=== PATIENT | male | born 1995 | race Caucasian/White ===

== ENCOUNTER 2016-08-03 16:28 | Emergency (ER) | payer BC, OTHER ==
[2016-08-03] MEDS: KETOROLAC TROMETHAMINE 60 MG/2 ML VIAL IM ONE (17:00)
--- NOTE | 2016-08-03 17:15 | Diagnostic Imaging Report ---
[facility] [address] [facility] [address] [place], [place]. [address] Report Submission Date: August 03, 2016 5:11:25 PM CDT Patient Study Name: MELVIN ZAMORANO Date: August 03, 2016 4:57:20 PM CDT Modality Type: CR Gender: M Description: SHOULDER : 89 Institution: [facility] Physician: TIKA CALVIN Right shoulder 3 views History: Pain after fall Findings: Right shoulder is unremarkable without fracture, dislocation, arthropathy, or focal bone lesion. Electronically signed on August 03, 2016 5:11:25 PM CDT by: Jerry ARAUJO
--- NOTE | 2016-08-03 17:53 | ED Physician Documentation ---
Upper Extremity Injury - HISTORIAN Historian: patient - HPI Stated Complaint: fall with R shoulder pain Chief Complaint: Upper Extremity Injury Onset: other (last noc) Where: home Severity: moderate Duration: persistent since Context: fall (was on kitchen counter and fell off and hit shoulder on the floor. No other injury noted. ) Modifying Factors: pain on movement Further Comments: yes - ROS CONST: no problems - PAST HX Past History: Rt handed Allergies/Adverse Reactions: Allergies Allergy/AdvReac Type Severity Reaction Status Date / Time No Known Drug Allergies Allergy Verified 08/03/16 16:38 - SOCIAL HX Smoking History: greater than 1 pack/day - FAMILY HX Family History: no significant history - VITAL SIGNS Vital Signs: Vital Signs Temp Pulse Resp BP Pulse Ox 92 H 16 98 08/03/16 16:34 08/03/16 16:34 08/03/16 16:34 - REVIEWED ASSESSMENTS Nursing Assessment Reviewed: Yes Vitals Reviewed: Yes ED Results Lab/Radiology - Radiology Radiology Impressions: Report Submission Date: August 03, 2016 5:11:25 PM CDT Patient Study Name: MELVIN ZAMORANO Date: August 03, 2016 4:57:20 PM CDT Modality Type: CR Gender: M Description: SHOULDER : 89 Institution: [facility] Physician: TIKA CALVIN - ER Right shoulder 3 views History: Pain after fall Findings: Right shoulder is unremarkable without fracture, dislocation, arthropathy, or focal bone lesion. Electronically signed on August 03, 2016 5:11:25 PM CDT by: Jerry Chase - Orders Orders: ED Orders Category Date Time Status Sling to Affected Extremity 1T Care 08/03/16 17:56 Ordered SHOULDER 2 VIEWS OR MORE [RAD] Stat Exams 08/03/16 Completed Ketorolac Tromethamine [Toradol] Med 08/03/16 16:54 Discontinued 60 mg IM NOW ONE Upper Extremity Injury Physic - Physical Exam General Appearance: alert, mild distress Hand: normal inspection, non-tender, no evidence of injury, normal ROM Wrist: normal inspection, non-tender, no evidence of injury, normal ROM Elbow/Forearm: normal inspection, non-tender, no evidence of injury, normal ROM Shoulder: limited ROM, pain, soft tissue tenderness (posterior shoulder and over acromial/clavicular area, no widening of AC joint noted.). No: bone tenderness, deformity, ecchymosis, swelling Neuro/Vascular/Tendon: no vascular compromise, motor nml, sensation nml Skin: warm,dry Head/ENT: nml inspection Neck/Back: nml inspection, non-tender Resp/CVS: chest non-tender, breath sounds nml, heart sounds nml, no resp. distress, lungs clear, reg. rate & rhythm Abdomen: non-tender, other (LE normal) Discharge Clincal Impression: Contusion shoulder/arm Qualifiers: Encounter type: initial encounter Laterality: right Qualified Code(s): S40.011A - Contusion of right shoulder, initial encounter Referrals: Jenny Fish FNP [Primary Care Provider] - 2 Days Additional Instructions: Cool compress to the shoulder area. Take some Aleve 220mg tablets, two tablets twice a day. Do shoulder exercises as instructed. Wear sling as needed for pain for the next 3 days. If you continue to have problems to follow-up with your primary care provider. Condition: Stable Disposition: 01 HOME, SELF-CARE Decision to Admit: NO Date of Decison to Admit: 08/03/16 Decision Time: 17:49
== END 2016-08-03 18:01 | disposition home or self-care (01) ==
LOC: ED 16:28
DX: S40.011A Contusion of right shoulder, initial encounter (principal); X58.XXXA Exposure to other specified factors, initial encounter; Y93.9 Activity, unspecified; Y99.9 Unspecified external cause status
CPT/HCPCS: 73030; J1885; 96372; 99283

== ENCOUNTER 2019-02-12 02:11 | Emergency (ER) | payer BC, OTHER ==
[2019-02-12] MEDS ORDERED: fentaNYL CITRATE/PF 100 MCG/2 ML INJ. IM ONE (02:12)
--- NOTE | 2019-02-12 02:17 | ED Physician Documentation ---
Shoulder Injury/Pain - HISTORIAN Historian: patient - HPI Chief Complaint: Shoulder Injury/ Pain Additional Information: 23 year old male presents to the ER with left sided shoulder pain s/p fall. Patient states he fell down 11 steps and hurt his shoulder. Onset: just prior to arrival Where: home Severity: moderate Pain: persistent Context: fall Associated Symptoms: unable to move shoulder - ROS CONST: no problems CVS/RESP: none GI/: denies: nausea, vomiting MS/SKIN/LYMPH: none NEURO: none - PAST HX Past History: Rt handed, other (ADHD) Immunizations: UTD Allergies/Adverse Reactions: Allergies Allergy/AdvReac Type Severity Reaction Status Date / Time methylphenidate Allergy Verified 02/12/19 03:21 [From Concerta] Home Medications: Ambulatory Orders Medication Instructions Recorded Carbamazepine [Carbatrol] 600 mg PO QIDHS 02/12/19 Prazosin HCl 1 mg PO QIDHS 02/12/19 - SOCIAL HX Smoking History: less than 1 pack/day Alcohol Use: occasionally Drug Use: none - FAMILY HX Family History: none - VITAL SIGNS Vital Signs: Vital Signs Temp Pulse Resp BP Pulse Ox 98.1 F 50 L 20 80/60 98 02/12/19 02:29 02/12/19 02:29 02/12/19 02:29 02/12/19 02:29 02/12/19 02:29 - REVIEWED ASSESSMENT Nursing Assessment Reviewed: Yes Vitals Reviewed: Yes Procedures Joint Reduction Site: shoulder (L) Conscious Sedation: Yes Reduction Attempts: 2 Pre-Procedure NV Exam: Yes Post Joint Reduction Film: joint reduced Progress: Patient has a very low pain tolerance; procedure went well; post reduction films show dislocation reduction; patient placed in shoulder immobilizer. ED Results Lab/Radiology - Radiology Radiology Impressions: Two views of the left shoulder Clinical history: Fall with injury. Pain. Findings: Examination left shoulder in AP and oblique views demonstrates anterior subcoracoid dislocation of the humeral head. There is no evident fracture. Impression: 1. Anterior dislocation of the humerus. Electronically signed on Feb 12, 2019 2:46:43 AM [employer] by: Warren Stockton One view of the left shoulder Clinical history: Reduced dislocation. Findings: Examination of the left shoulder single AP view demonstrates reduction of previously described anterior dislocation of the humerus. There is no evident fracture. Impression: 1. Reduced dislocation. Electronically signed on Feb 12, 2019 3:24:06 AM [employer] by: Warren Stockton - Orders Orders: ED Orders Category Date Time Status Shoulder Immobilizer 1T Care 02/12/19 03:28 Active SHOULDER 2 VIEWS OR MORE [RAD] Stat Exams 02/12/19 Completed SHOULDER 2 VIEWS OR MORE [RAD] Stat Exams 02/12/19 Completed HYDROmorphone HCL/PF [Dilaudid] Med 02/12/19 02:51 Discontinued 2 mg .ROUTE .STK-MED ONE HYDROmorphone HCL/PF [Dilaudid] Med 02/12/19 02:55 Discontinued 2 mg IVP NOW ONE Midazolam HCl/Pf [Versed] Med 02/12/19 02:50 Discontinued 5 mg .ROUTE .STK-MED ONE Midazolam HCl/Pf [Versed] Med 02/12/19 02:55 Discontinued 5 mg IVP NOW ONE fentaNYL CITRATE/PF [Sublimaze] Med 02/12/19 02:12 Discontinued 50 mcg IM NOW ONE Shoulder Injury Physical Exam - Physical Exam General Appearance: moderate distress Shoulder: deformity, AC drop-off, limited ROM, held in adduction Upper Extremity: no injury below shoulder Neuro: sensation nml, motor nml, sensory deficit, motor deficit Vascular: no vascular compromise, sensation nml Skin: warm/dry, normal color Head/ENT: nml inspection, pharynx nml Respiratory: breath sounds nml CVS: heart sounds normal Abdomen: soft, normal bowel sounds Discharge Clincal Impression: Anterior shoulder dislocation Referrals: Jenny Fish, [employer] [Primary Care Provider] - 2 Days Additional Instructions: Tramadol 50mg 1 tab by mouth every 6 hours as needed for pain Wear shoulder immobilizer Follow up with ortho for re-evaluation JIMMY: [phone] [facility]opedic Group: [phone] Condition: Good Disposition: 01 HOME, SELF-CARE Decision to Admit: NO Decision Time: 06:34
[2019-02-12] MEDS ORDERED: MIDAZOLAM HCL 5 MG/5 ML VIAL ONE (02:50)
[2019-02-12] MEDS ORDERED: HYDROmorphone HCL/PF 2 MG/ML VIAL ONE (02:51)
--- NOTE | 2019-02-12 02:51 | Diagnostic Imaging Report ---
PATIENT MR#: [id number] PATIENT PATIENT NAME: MELVIN ZAMORANO DATE OF : 1995 REFERRING PHYSICIAN: Violet Turner EXAM DATE: 02/12/2019 ACCESSION NUMBER: [id number] EXAM DESCRIPTION: SHOULDER 2 VIEWS OR MORE Two views of the left shoulder Clinical history: Fall with injury. Pain. Findings: Examination left shoulder in AP and oblique views demonstrates anterior subcoracoid disloc ation of the humeral head. There is no evident fracture. Impression: 1. Anterior dislocation of the humerus. Read by: Dr. Warren Stockton Transcribed by: Transcribed Date: Electronically signed by: Dr. Warren Stockton Date signed: 02/12/2019 2:50:53 AM
[2019-02-12] MEDS ORDERED: HYDROmorphone HCL/PF 2 MG/ML VIAL IVP ONE (02:55)
[2019-02-12] MEDS ORDERED: MIDAZOLAM HCL 5 MG/5 ML VIAL IVP ONE (02:55)
--- NOTE | 2019-02-12 03:28 | Diagnostic Imaging Report ---
PATIENT MR#: [id number] PATIENT PATIENT NAME: MELVIN ZAMORANO DATE OF : 1995 REFERRING PHYSICIAN: Violet Turner EXAM DATE: 02/12/2019 ACCESSION NUMBER: [id number] EXAM DESCRIPTION: SHOULDER 2 VIEWS OR MORE One view of the left shoulder Clinical history: Reduced dislocation. Findings: Examination of the left shoulder single AP view demonstrates reduction of previously descr ibed anterior dislocation of the humerus. There is no evident fracture. Impression: 1. Reduced dislocation. Read by: Dr. Warren Stockton Transcribed by: Transcribed Date: Electronically signed by: Dr. Warren Stockton Date signed: 02/12/2019 3:27:53 AM
[2019-02-12 07:36] VITALS: BP 136/91
== END 2019-02-12 07:29 | disposition home or self-care (01) ==
LOC: ED 02:11
DX: S43.005A Unspecified dislocation of left shoulder joint, initial encounter (principal); W10.9XXA Fall (on) (from) unspecified stairs and steps, initial encounter; Y92.009 Unspecified place in unspecified non-institutional (private) residence as the place of occurrence of the external cause
CPT/HCPCS: 23600; 23650; 73030; 96372; 96374; 96375; 99283; 99284; J1170; J2250; J3010; S1016

== ENCOUNTER 2019-02-12 18:31 | Emergency (ER) | payer BC, OTHER ==
--- NOTE | 2019-02-12 18:32 | ED Physician Documentation ---
General Adult - HISTORIAN Historian: patient - HPI Stated Complaint: L shoulder pain Chief Complaint: General Adult Onset: hours Timing: still present Severity: moderate Further Comments: yes (Pt is a 23 yo male who was seen here this am for L shoulder dislocation after falling down a flight of 10 or 12 stairs. Post reduction x-ray was read as "reduced." Pt continues to c/o L shoulder pain, clavicle pain, and side pain. Pt went from ER to an appearance at court and subsequently went to custodial. Pt comes to ER with correctional officers. Pt was rx'd Tramadol this am. He states that he lost his prescription and has not had pain med.) - ROS CONST: no problems EYES/ENT: none CVS/RESP: other (L side pain/shoulder pain) GI/: none MS/SKIN/LYMPH: other (L shoulder, clavicle, side pain) - PAST HX Past History: other (ADHD) Allergies/Adverse Reactions: Allergies Allergy/AdvReac Type Severity Reaction Status Date / Time methylphenidate Allergy Verified 02/12/19 18:38 [From [employer]] Home Medications: Ambulatory Orders Medication Instructions Recorded Carbamazepine [Carbatrol] 600 mg PO QIDHS 02/12/19 Prazosin HCl 1 mg PO QIDHS 02/12/19 - SOCIAL HX Smoking History: cigarettes - FAMILY HX Family History: No - VITAL SIGNS Vital Signs: Vital Signs Temp Pulse Resp BP Pulse Ox 136/91 02/12/19 07:25 - REVIEWED ASSESSMENTS Nursing Assessment Reviewed: Yes Vitals Reviewed: Yes Procedures Joint Reduction Site: shoulder (L) Conscious Sedation: Yes (Fentanyl 100 mcg IV x 3) Reduction Attempts: 2 Pre-Procedure NV Exam: Yes Post Joint Reduction Film: Left Hill Sachs humeral head deformity Progress - Progress Progress: Toradol 60 mg IM CLAVICLE COMPLETE History: ORDER STATES FELL DOWN STAIRS THIS AM; PT STATES LEFT SIDED CLAVICLE PAIN SINCE THIS MORNING; SHOULDER DISLOCATION THIS AM WITH IMAGES Findings: Comparison is made to exam at 2:52 a.m.. No evidence of acute fracture. There is anterior dislocation of the humeral head now present. The acromioclavicular joint is normal. Impression: 1. Recurrent anterior humeral head dislocation. RIBS UNILATERAL W/ PA CHEST History: ORDER STATES FELL DOWN STAIRS THIS AM; PT STATES LT RIB PAIN AFTER FALLING DOWN STAIRS THIS AM; (Hx) / Findings: There is no evidence of acute fracture. There is anterior dislocation of the humeral head present. No rib fracture is present. The heart size is normal the lungs are clear. No pleural effusion or pneumothorax. Impression: 1. No acute pulmonary disease. 2. Anterior humeral head dislocation. 3. No evidence of rib fracture. Examination: Plain film left shoulder History: POST REDUCTION Comparison exams: None provided Findings: 2 post reduction views of the left shoulder demonstrates relocation of the humeral head to the appropriate position adjacent to the osseous glenoid. Humeral head Hill-Sachs deformity. No soft tissue abnormality Impression: Humeral head relocation. Humeral head Hill-Sachs deformity. Fentanyl 100 mcg IV x 3 for L shoulder reduction Benadryl 25 mg IV (for pruritis after Fentanyl, post reduction) NS 500 cc IVF Shoulder immobilizer f/u orthopedics in am to be seen later this week d/c instructions Rx Toradol 10 mg. Take one every 6 to 8 hours as needed for pain. Maximum 4 tablets per day. Do not use for longer than 5 days. Do not take other NSAIDS (such as ibuprofen, aspirin or naproxen) in addition to Toradol. You may take Tylenol as directed. You have a Hill-Sachs deformity of the humeral head at the left shoulder and you will need to follow up with an orthopedic doctor to see if further treatment is needed. You may at least need physical therapy. Wear shoulder immobilizer but remove it several times a day and flex and extend your forearm at the elbow to prevent elbow stiffness. Follow up with an orthopedic doctor this week for further evaluation and exercise instructions. General Adult Physical Exam - PHYSICAL EXAM GENERAL APPEARANCE: moderate distress EENT: pharynx normal NECK: normal inspection, supple RESPIRATORY: no resp distress, chest non-tender, breath sounds normal CVS: reg rate & rhythm, heart sounds normal ABDOMEN: soft, no organomegaly, normal bowel sounds BACK: normal inspection SKIN: warm/dry, normal color EXTREMITIES: other (L shoulder pain, pain with palpation of clavicle, L flank, L shoulder; inhibited range of motion L shoulder) NEURO: oriented X3, motor nml, sensation nml Discharge Clincal Impression: Anterior shoulder dislocation Qualifiers: Encounter type: subsequent encounter Laterality: left Qualified Code(s): S43.015D - Anterior dislocation of left humerus, subsequent encounter Referrals: Jenny Fish FNP [Primary Care Provider] - Condition: Stable Disposition: 01 HOME, SELF-CARE Decision to Admit: NO Decision Time: 21:32
[2019-02-12] MEDS ORDERED: KETOROLAC TROMETHAMINE 60 MG/2 ML VIAL IM ONE (18:45)
--- NOTE | 2019-02-12 19:23 | Diagnostic Imaging Report ---
PATIENT MR#: [id number] PATIENT PATIENT NAME: MELVIN ZAMORANO DATE OF : 1995 REFERRING PHYSICIAN: Kamar Logan EXAM DATE: 02/12/2019 ACCESSION NUMBER: [id number] EXAM DESCRIPTION: CLAVICLE COMPLETE CLAVICLE COMPLETE History: ORDER STATES FELL DOWN STAIRS THIS AM; PT STATES LEFT SIDED CLAVICLE PAIN SINCE THIS MORNING ; SHOULDER DISLOCATION THIS AM WITH IMAGES Findings: Comparison is made to exam at 2:52 a.m.. No evidence of acute fracture. There is anteri or dislocation of the humeral head now present. The acromioclavicular joint is normal. Impression: 1. Recurrent anterior humeral head dislocation. Read by: Dr. Markos Britton Transcribed by: Transcribed Date: Electronically signed by: Dr. Markos Britton Date signed: 02/12/2019 7:22:52 PM
--- NOTE | 2019-02-12 19:26 | Diagnostic Imaging Report ---
PATIENT MR#: [id number] PATIENT PATIENT NAME: MELVIN ZAMORANO DATE OF : 1995 REFERRING PHYSICIAN: Kamar Logan EXAM DATE: 02/12/2019 ACCESSION NUMBER: [id number] EXAM DESCRIPTION: RIBS UNILATERAL W/ PA CHEST RIBS UNILATERAL W/ PA CHEST History: ORDER STATES FELL DOWN STAIRS THIS AM; PT STATES LT RIB PAIN AFTER FALLING DOWN STAIRS THIS AM; (Hx) / Findings: There is no evidence of acute fracture. There is anterior dislocation of the humeral head present. No rib fracture is present. The heart size is normal the lungs are clear. No pleural effusion or pneumothorax. Impression: 1. No acute pulmonary disease. 2. Anterior humeral head dislocation. 3. No evidence of rib fracture. Read by: Dr. Markos Britton Transcribed by: Transcribed Date: Electronically signed by: Dr. Markos Britton Date signed: 02/12/2019 7:25:52 PM
[2019-02-12] MEDS ORDERED: fentaNYL CITRATE/PF 100 MCG/2 ML INJ. ONE ×3 (19:46→20:03)
[2019-02-12] MEDS ORDERED: NALOXONE HCL 0.4 MG/ML AMP ONE (19:53)
[2019-02-12] MEDS ORDERED: 0.9 % SODIUM CHLORIDE 500 ML IV ONE ×2 (20:24→20:30)
[2019-02-12] MEDS ORDERED: diphenhydrAMINE HCL 50 MG/ML VIAL ONE (20:29)
--- NOTE | 2019-02-12 20:42 | Diagnostic Imaging Report ---
PATIENT MR#: [id number] PATIENT PATIENT NAME: MELVIN ZAMORANO DATE OF : 1995 REFERRING PHYSICIAN: Kamar Logan EXAM DATE: 02/12/2019 ACCESSION NUMBER: [id number] EXAM DESCRIPTION: SHOULDER 2 VIEWS OR MORE Examination: Plain film left shoulder History: POST REDUCTION Comparison exams: None provided Findings: 2 post reduction views of the left shoulder demonstrates relocation of the humeral head to the appropriate position adjacent to the osseous glenoid. Humeral head Hill-Sachs deformity. No soft tissue abnormali ty Impression: Humeral head relocation. Humeral head Hill-Sachs deformity. Read by: Dr. Colt Donnelly Transcribed by: Transcribed Date: Electronically signed by: Dr. Colt Donnelly Date signed: 02/12/2019 8:41:52 PM
[2019-02-12 21:26] VITALS: BP 123/60
== END 2019-02-12 21:23 | disposition home or self-care (01) ==
LOC: ED 18:31
DX: S43.015D Anterior dislocation of left humerus, subsequent encounter (principal); W10.9XXD Fall (on) (from) unspecified stairs and steps, subsequent encounter
CPT/HCPCS: 23600; 71101; 73000; 73030; 96361; 96372; 96374; 99283; 99284; J1885; J7060; S1016